=== PATIENT | female | born 1945 | race Hispanic/Latino ===

== ENCOUNTER → 2017-12-12 | Outpatient (CLI) | payer OTHER | END | disposition home or self-care (01) | LOC: SHCH 13:24 | PROVIDERS: ATTEND Internal Medicine Cardiovascular Disease | DX: I11.0 Hypertensive heart disease with heart failure (principal); I50.41 Acute combined systolic (congestive) and diastolic (congestive) heart failure; R06.00 Dyspnea, unspecified | CPT/HCPCS: 93306 ==

== ENCOUNTER 2017-12-31 14:53 | Emergency (ER) | payer OTHER ==
[2017-12-31] MEDS ORDERED: ONDANSETRON HCL 4 MG/2 ML VIAL ONE (15:28)
[2017-12-31 16:36] LABS: APPEARANCE,URINE Cloudy (CLEAR); BILIRUBIN,URINE Negative (NEGATIVE); COLOR,URINE Yellow (YELLOW); GLUCOSE, URINE (UA) Negative (NEGATIVE); KETONES,URINE Negative (NEGATIVE); LEUKOCYTE ESTERASE ,URINE Moderate (NEGATIVE); NITRATE,URINE Positive (NEGATIVE); OCCULT BLOOD,URINE Large (NEGATIVE); PROTEIN,URINE >=1000 (NEGATIVE)
[2017-12-31 16:42] LABS: AMYLASE 36 U/L (25-115); CREATINE KINASE, TOTAL 90 U/L (21-232); LIPASE 217 U/L (114-286)
[2017-12-31 16:48] LABS: BACTERIA,URINE Moderate /HPF (None Seen); RBC,URINE TNTC /HPF (0-1); SQUAMOUS EPITHELIAL CELL,UR 0-2 /HPF (0-2); YEAST,URINE BUDDING Few /HPF (None Seen)
[2017-12-31] MEDS ORDERED: LEVOFLOXACIN 750 MG/D5W 150 ML 0 ML ONE (17:01)
[2017-12-31] MEDS ORDERED: LEVOFLOXACIN 500 MG/D5W 100 ML 100 ML ONE (17:02)
[2017-12-31] MEDS ORDERED: ACETAMINOPHEN 325 MG TAB ONE (17:17)
== END 2017-12-31 18:16 | disposition home or self-care (01) ==
LOC: EDH 14:53
DX: N39.0 Urinary tract infection, site not specified (principal); A09 Infectious gastroenteritis and colitis, unspecified; E11.9 Type 2 diabetes mellitus without complications; M54.2 Cervicalgia; I11.0 Hypertensive heart disease with heart failure; I50.9 Heart failure, unspecified; J44.9 Chronic obstructive pulmonary disease, unspecified
CPT/HCPCS: 36415; 81001; 82150; 82550; 83605 ×2; 83690; 84484; 87040 ×2; 87077; 87088; 87186; 87804 ×2; 93005; 96365; 96375; 99285; J1956; J2405

== ENCOUNTER → 2020-06-17 | Outpatient (CLI) | payer OTHER | END | disposition home or self-care (01) | LOC: SHCH 12:58 | PROVIDERS: ATTEND Internal Medicine Cardiovascular Disease | DX: I67.9 Cerebrovascular disease, unspecified (principal); I35.0 Nonrheumatic aortic (valve) stenosis | CPT/HCPCS: 93306; 93356 ==

== ENCOUNTER → 2020-07-02 | Outpatient (CLI) | payer OTHER | END | disposition home or self-care (01) | LOC: SHCH 15:21 | PROVIDERS: ATTEND Internal Medicine Cardiovascular Disease | DX: I67.9 Cerebrovascular disease, unspecified (principal); I35.0 Nonrheumatic aortic (valve) stenosis | CPT/HCPCS: 93880 ==

== ENCOUNTER 2020-09-04 20:17 | Inpatient (IN) | payer OTHER ==
[~2020-09-04] VITALS: Ht 160 cm; Wt 77.3 kg
[2020-09-04 14:20] VITALS: BP 134/67
[2020-09-04 14:40] VITALS: BP 146/77
[2020-09-04 20:18] VITALS: BP 130/67
[2020-09-04 20:48] LABS: BASOPHILS % (AUTO) 0.7 % (0.0-5.0); EOSINOPHILS % (AUTO) 3.8 % (0.0-8.0); HEMATOCRIT 27.9 % (36-48); LYMPHOCYTES % (AUTO) 26.6 % (21.0-51.0); MEAN CORPUSCULAR HEMOGLOBIN 28.2 pg (27.0-33.0); MEAN CORPUSCULAR HGB CONC 31.5 g/dL (32.0-36.0); MEAN CORPUSCULAR VOLUME 89.4 fL (79-99); NEUTROPHILS % (AUTO) 57.6 % (40.0-77.0); PLATELET COUNT (AUTO) 197 K/uL (130-400); RED BLOOD CELL COUNT(AUTO) 3.12 MIL/uL (4.00-5.50); RED CELL DISTRIBUTION WIDTH 16.4 % (11.0-15.5); WHITE BLOOD COUNT (AUTO) 5.7 K/uL (4.8-10.8)
[2020-09-04 20:57] VITALS: BP 128/84
[2020-09-04 20:59] LABS: CREATININE 1.1 mg/dL (0.5-1.5); INR 0.97 (0.85-1.15); POTASSIUM 4.4 mmol/L (3.5-5.1); PROTHROMBIN TIME 10.6 SEC (9.6-11.6)
[2020-09-04 21:00] LABS: PARTIAL THROMBOPLASTIN TIME 25.3 SEC (26.3-35.5)
[2020-09-04 21:02] LABS: ALBUMIN 2.6 g/dL (3.5-5.0); BILIRUBIN,TOTAL 0.3 mg/dL (0.2-1.0); TOTAL PROTEIN, SERUM 7.2 g/dL (6.0-8.3)
[2020-09-04 22:02] VITALS: BP 126/82
[2020-09-04 22:03] LABS: APPEARANCE,URINE Clear (CLEAR); BILIRUBIN,URINE Negative (NEGATIVE); COLOR,URINE Yellow (YELLOW); GLUCOSE, URINE (UA) Negative (NEGATIVE); KETONES,URINE Negative (NEGATIVE); LEUKOCYTE ESTERASE ,URINE Negative (NEGATIVE); NITRATE,URINE Negative (NEGATIVE); OCCULT BLOOD,URINE Large (NEGATIVE); PH,URINE 6.5 (5.0-8.0); PROTEIN,URINE POS 2+ mg/dL (NEGATIVE); UROBILINOGEN,URINE 0.2 mg/dL (0.2-1.0)
[2020-09-04 22:21] LABS: BACTERIA,URINE Rare /HPF (None Seen); WBC,URINE 0-1 /HPF (0-1)
[2020-09-05] VITALS (7 sets, daily range): BP systolic 135–163; BP diastolic 52–83
[2020-09-05] MEDS ORDERED: HYDRALAZINE 20MG/ML VIAL IV PRN
[2020-09-05] MEDS: CEFTRIAXONE 1G VIAL IV SCH
[2020-09-05] MEDS ORDERED: ONDANSETRON 4MG INJ IV PRN
[2020-09-05] MEDS ORDERED: OCTREOTIDE ACETATE 1,250 MCG in 0.9% NACL 250ML 250 ML IV SCH ×2
[2020-09-05] MEDS ORDERED: OCTREOTIDE ACETATE 200 MCG/ML 5 ML VIAL ONE (00:16)
[2020-09-05] MEDS ORDERED: OCTREOTIDE ACETATE IV SCH (04:30)
[2020-09-05] MEDS ORDERED: NACL 0.9% IV SCH (04:30)
[2020-09-05 05:04] LABS: BASOPHILS % (AUTO) 0.8 % (0.0-5.0); EOSINOPHILS % (AUTO) 3.7 % (0.0-8.0); HEMATOCRIT 29.9 % (36-48); LYMPHOCYTES % (AUTO) 25.9 % (21.0-51.0); MEAN CORPUSCULAR HEMOGLOBIN 26.9 pg (27.0-33.0); MEAN CORPUSCULAR HGB CONC 30.8 g/dL (32.0-36.0); MEAN CORPUSCULAR VOLUME 87.4 fL (79-99); MONOCYTES % (AUTO) 10.1 % (3.0-13.0); NEUTROPHILS % (AUTO) 59.2 % (40.0-77.0); PLATELET COUNT (AUTO) 210 K/uL (130-400); RED BLOOD CELL COUNT(AUTO) 3.42 MIL/uL (4.00-5.50); RED CELL DISTRIBUTION WIDTH 16.4 % (11.0-15.5); WHITE BLOOD COUNT (AUTO) 6.4 K/uL (4.8-10.8)
[2020-09-05 05:25] LABS: MAGNESIUM 1.8 mg/dL (1.80-2.40); PHOSPHORUS 4.2 mg/dL (2.5-4.9); POTASSIUM 4.3 mmol/L (3.5-5.1)
[2020-09-05] MEDS ORDERED: ATOR10TA69 PO (10:43)
[2020-09-05] MEDS ORDERED: AMLO-257 PO (10:43)
[2020-09-05] MEDS ORDERED: PANT40TA54 PO (10:43)
[2020-09-05] MEDS ORDERED: ERGO500093 PO (10:43)
[2020-09-05] MEDS ORDERED: FOLI1 PO (10:43)
[2020-09-05] MEDS ORDERED: INSU300I SQ (10:43)
[2020-09-05] MEDS ORDERED: FERR325T29 PO (10:43)
[2020-09-05] MEDS ORDERED: ALBU2.5V2 NEB (10:43)
[2020-09-05] MEDS ORDERED: CARV25TA PO (10:43)
[2020-09-05] MEDS ORDERED: BENZ-70 PO (10:43)
[2020-09-05] MEDS ORDERED: METF-444 PO (10:43)
[2020-09-05] MEDS ORDERED: LOSA1TAB54 PO (10:43)
[2020-09-05] MEDS ORDERED: AEC81 PO (10:45)
[2020-09-05] MEDS ORDERED: MAGNESIUM CITRATE 296 ML SOLUTION PO SCH (12:30)
[2020-09-05] MEDS ORDERED: BISACODYL 5 MG TABLET.DR PO SCH (12:30)
[2020-09-05] MEDS ORDERED: LACTULOSE 20 GM/30 ML UDCUP PO PRN (12:30)
[2020-09-05] MEDS: PANTOPRAZOLE 40MG INJ 80 MG in 0.9%NACL 100ML 100 ML IV SCH ×2 (13:03→20:42)
[2020-09-05] MEDS ORDERED: PEG 3350/NA SULF,BICARB,CL/KCL 4000 ML SOLN PO SCH (16:00)
[2020-09-05] MEDS: 0.9%NACL 1000ML 1,000 ML IV SCH ×3 (16:40→19:54)
[2020-09-06] VITALS (17 sets, daily range): BP systolic 134–174; BP diastolic 63–94
[2020-09-06 05:32] LABS: HEMATOCRIT 29.8 % (36-48); MEAN CORPUSCULAR HEMOGLOBIN 27.1 pg (27.0-33.0); MEAN CORPUSCULAR HGB CONC 30.9 g/dL (32.0-36.0); MEAN CORPUSCULAR VOLUME 87.9 fL (79-99); RED BLOOD CELL COUNT(AUTO) 3.39 MIL/uL (4.00-5.50); RED CELL DISTRIBUTION WIDTH 16.4 % (11.0-15.5); WHITE BLOOD COUNT (AUTO) 6.6 K/uL (4.8-10.8)
[2020-09-06 05:50] LABS: CREATININE 0.9 mg/dL (0.5-1.5); POTASSIUM 3.5 mmol/L (3.5-5.1)
[2020-09-06] MEDS ORDERED: ALBUTEROL 0.083% 2.5 MG/3 ML INH IH PRN (08:30)
[2020-09-06] MEDS ORDERED: AMLO-257 PO (08:31)
[2020-09-06] MEDS ORDERED: ERGOCALCIFEROL (VITAMIN D2) 50,000 UNIT CAPSULE PO SCH (09:00)
[2020-09-06] MEDS: PANTOPRAZOLE 40 MG TAB DR PO SCH (09:00)
[2020-09-06] MEDS: FERROUS SULFATE 325 MG TABLET.DR PO SCH (09:00)
[2020-09-06] MEDS: CARVEDILOL 25 MG TABLET PO SCH ×2 (09:00→20:01)
[2020-09-06] MEDS: FOLIC ACID 1 MG TABLET PO SCH (09:00)
[2020-09-06] MEDS: 0.9%NACL 1000ML 1,000 ML IV SCH (09:57)
[2020-09-06] MEDS: PANTOPRAZOLE 40MG INJ 80 MG in 0.9%NACL 100ML 100 ML IV SCH (09:57)
[2020-09-06] MEDS ORDERED: FENTANYL CITRATE PF 50 MCG/1 ML 2ML VIAL ONE (12:48)
[2020-09-06] MEDS ORDERED: PROPOFOL 10 MG/ML 20ML VIAL IV ONE ×2 (12:49→13:43)
[2020-09-06] MEDS ORDERED: LIDOCAINE HCL 1% 20 ML VIAL ONE (12:49)
[2020-09-06] MEDS: LOSARTAN/HYDROCHLOROTHIAZIDE 50-12.5MG TABLET PO SCH (16:32)
[2020-09-06] MEDS ORDERED: ATORVASTATIN 10 MG TABLET PO SCH (21:00)
[2020-09-06] MEDS: CEFTRIAXONE 1G VIAL IV SCH ×2 (23:55)
[2020-09-07] VITALS (18 sets, daily range): BP systolic 133–159; BP diastolic 54–93
[2020-09-07] MEDS: 0.9%NACL 1000ML 1,000 ML IV SCH ×2 (01:01→05:10)
[2020-09-07 05:30] LABS: HEMATOCRIT 28.7 % (36-48); MEAN CORPUSCULAR HGB CONC 31.7 g/dL (32.0-36.0); MEAN CORPUSCULAR VOLUME 85.2 fL (79-99); RED BLOOD CELL COUNT(AUTO) 3.37 MIL/uL (4.00-5.50); RED CELL DISTRIBUTION WIDTH 16.2 % (11.0-15.5); WHITE BLOOD COUNT (AUTO) 9.3 K/uL (4.8-10.8)
[2020-09-07 05:50] LABS: POTASSIUM 3.7 mmol/L (3.5-5.1)
[2020-09-07] MEDS: CARVEDILOL 25 MG TABLET PO SCH (06:12)
[2020-09-07] MEDS: FERROUS SULFATE 325 MG TABLET.DR PO SCH (09:00)
[2020-09-07] MEDS: LOSARTAN/HYDROCHLOROTHIAZIDE 50-12.5MG TABLET PO SCH (09:00)
[2020-09-07] MEDS ORDERED: AMLODIPINE 5 MG TAB PO SCH (09:00)
[2020-09-07] MEDS: PANTOPRAZOLE 40 MG TAB DR PO SCH (09:00)
[2020-09-07] MEDS: FOLIC ACID 1 MG TABLET PO SCH (09:00)
[2020-09-07] MEDS ORDERED: HYDROCORTISONE 25 MG SUPPOSITORY PR SCH (09:00)
[2020-09-07] MEDS ORDERED: FENTANYL CITRATE PF 50 MCG/1 ML 2ML VIAL ONE (11:37)
[2020-09-07] MEDS ORDERED: PROPOFOL 10 MG/ML 20ML VIAL IV ONE ×2 (11:37→12:18)
[2020-09-07] MEDS ORDERED: SUCCINYLCHOLINE 200MG/10ML SYR ONE (12:20)
== END 2020-09-07 17:00 | disposition home or self-care (01) | DRG 368 ==
LOC: EDH 20:40 → EDHIP 23:36 → OBSVTOIN 23:36 → 3AH 09-05 02:47
PROVIDERS: ADMIT Internal Medicine; ATTEND Internal Medicine
PROC: 0DJ08ZZ Inspection of Upper Intestinal Tract, Via Natural or Artificial Opening Endoscopic (ICD-10-PCS; principal; 2020-09-06)
PROC: 0DBP8ZZ Excision of Rectum, Via Natural or Artificial Opening Endoscopic (ICD-10-PCS; 2020-09-06)
PROC: 0W3P8ZZ Control Bleeding in Gastrointestinal Tract, Via Natural or Artificial Opening Endoscopic (ICD-10-PCS; 2020-09-06)
PROC: 0DJD8ZZ Inspection of Lower Intestinal Tract, Via Natural or Artificial Opening Endoscopic (ICD-10-PCS; 2020-09-06)
PROC: 0DJ08ZZ Inspection of Upper Intestinal Tract, Via Natural or Artificial Opening Endoscopic (ICD-10-PCS; 2020-09-06)
DX: K21.01 Gastro-esophageal reflux disease with esophagitis, with bleeding (principal); K29.01 Acute gastritis with bleeding; E43 Unspecified severe protein-calorie malnutrition; K57.31 Diverticulosis of large intestine without perforation or abscess with bleeding; D62 Acute posthemorrhagic anemia; K63.3 Ulcer of intestine; K62.1 Rectal polyp; I12.9 Hypertensive chronic kidney disease with stage 1 through stage 4 chronic kidney disease, or unspecified chronic kidney disease; J45.909 Unspecified asthma, uncomplicated; E11.22 Type 2 diabetes mellitus with diabetic chronic kidney disease; E78.00 Pure hypercholesterolemia, unspecified; E78.5 Hyperlipidemia, unspecified; K44.9 Diaphragmatic hernia without obstruction or gangrene; N18.9 Chronic kidney disease, unspecified; K64.1 Second degree hemorrhoids; Z68.30 Body mass index [BMI] 30.0-30.9, adult; Z79.4 Long term (current) use of insulin; Z79.82 Long term (current) use of aspirin; Z79.899 Other long term (current) drug therapy; Z86.73 Personal history of transient ischemic attack (TIA), and cerebral infarction without residual deficits; Z90.49 Acquired absence of other specified parts of digestive tract; Z20.822 Contact with and (suspected) exposure to COVID-19
CPT/HCPCS: 36415; 43235; 44360; 45380; 45382; 76770; 80048; 80053; 81001; 82270; 82550; 82948; 83735; 84100; 84484; 85025; 85027; 85610; 85730; 86677; 86850; 86900; 86901; 86923; 87635; 94664; A4606; C9113; G0378; J0330; J0360; J0696; J2354; J2704; J3010; J7030

== ENCOUNTER 2020-11-18 12:48 | Inpatient (IN) | payer OTHER ==
[~2020-11-18] VITALS: Ht 144.8 cm; Wt 83.5 kg
[~2020-11-18 12:48] MED LIST: AEC81 PO; ALBU2.5V2 NEB; AMLO-257 PO; ATOR10TA69 PO; BENZ-70 PO; CARV25TA PO; ERGO500093 PO; FERR325T29 PO; FOLI1 PO; INSU300I SQ; LOSA1TAB54 PO; METF-444 PO; PANT40TA54 PO
[2020-11-18] MEDS ORDERED: NITROGLYCERIN 1GM OINT 1 INCH/1GM TD ONE (13:00)
[2020-11-18] MEDS ORDERED: FUROSEMIDE 40MG VIAL IV ONE (13:00)
[2020-11-18] MEDS ORDERED: IPRATROPIUM/ALBUTEROL SULFATE 3 ML SOLUTION IH ONE (13:00)
[2020-11-18] MEDS ORDERED: SOLU-MEDROL 125MG VIAL IVP ONE (13:00)
[2020-11-18 13:18] LABS: ABG BASE EXCESS -2.2 mmol/L (-2.0-3.0); ABG HCO3 27.7 mmol/L (21.0-28.0); ABG OXYGEN SATURATION 99.2 % (95.0-99.0); ABG PCO2 78 mmHg (32-45)
[2020-11-18 13:31] VITALS: BP 163/71
[2020-11-18 13:34] LABS: BASOPHILS % (AUTO) 0.6 % (0.0-5.0); EOSINOPHILS % (AUTO) 0.7 % (0.0-8.0); HEMATOCRIT 33.2 % (36-48); MEAN CORPUSCULAR HEMOGLOBIN 28.8 pg (27.0-33.0); MEAN CORPUSCULAR HGB CONC 29.2 g/dL (32.0-36.0); MEAN CORPUSCULAR VOLUME 98.5 fL (79-99); MONOCYTES % (AUTO) 5.6 % (3.0-13.0); NEUTROPHILS % (AUTO) 71.3 % (40.0-77.0); PLATELET COUNT (AUTO) 210 K/uL (130-400); RED BLOOD CELL COUNT(AUTO) 3.37 MIL/uL (4.00-5.50); RED CELL DISTRIBUTION WIDTH 17.4 % (11.0-15.5); WHITE BLOOD COUNT (AUTO) 8.9 K/uL (4.8-10.8)
[2020-11-18 13:52] LABS: B-TYPE NATRIURETIC PEPTIDE 1360 pg/mL (0-100)
[2020-11-18 14:44] LABS: ALBUMIN 2.9 g/dL (3.5-5.0); BILIRUBIN,TOTAL 0.4 mg/dL (0.2-1.0); CREATININE 1.2 mg/dL (0.5-1.5); POTASSIUM 5.5 mmol/L (3.5-5.1); TOTAL PROTEIN, SERUM 7.2 g/dL (6.0-8.3)
[2020-11-18] MEDS ORDERED: IOHEXOL-350 75 ML VIAL IV ONE (16:30)
[2020-11-18] MEDS ORDERED: ONDANSETRON 4MG INJ IVP PRN (16:30)
[2020-11-18] MEDS ORDERED: DOCUSATE SODIUM 100 MG CAP PO PRN (16:30)
[2020-11-18] MEDS ORDERED: MORPHINE 2 MG SYG IVP PRN (16:30)
[2020-11-18] MEDS ORDERED: ACETAMINOPHEN 325 MG TAB PO PRN (16:30)
[2020-11-18] MEDS ORDERED: LACTULOSE 20 GM/30 ML UDCUP PO PRN (16:30)
[2020-11-18] MEDS ORDERED: ACETAMINOPHEN 650 MG SUPPOSITORY RC PRN (16:30)
[2020-11-18] MEDS ORDERED: SOLU-MEDROL 125MG VIAL IVP SCH (16:30)
[2020-11-18] MEDS ORDERED: HYDRALAZINE 20MG/ML VIAL IV PRN (16:30)
[2020-11-18 17:18] VITALS: BP 144/75
[2020-11-18 17:46] LABS: APPEARANCE,URINE Clear (CLEAR); BILIRUBIN,URINE Negative (NEGATIVE); COLOR,URINE Yellow (YELLOW); GLUCOSE, URINE (UA) Negative (NEGATIVE); KETONES,URINE Negative (NEGATIVE); LEUKOCYTE ESTERASE ,URINE Negative (NEGATIVE); NITRATE,URINE Negative (NEGATIVE); OCCULT BLOOD,URINE Small (NEGATIVE); PROTEIN,URINE POS 2+ mg/dL (NEGATIVE); UROBILINOGEN,URINE 0.2 mg/dL (0.2-1.0)
[2020-11-18] MEDS: INSULIN HUMULIN R 100 UNIT/ML 3ML SQ SCH ×2 (17:48→22:54)
[2020-11-18 18:15] LABS: BACTERIA,URINE Few /HPF (None Seen); MUCUS,URINE Few LPF (None Seen); SQUAMOUS EPITHELIAL CELL,UR 0-2 /HPF (0-2)
[2020-11-18 18:52] VITALS: BP 125/66
[2020-11-18] MEDS: LEVOFLOXACIN 500 MG/D5W 100 ML IV SCH (19:33)
[2020-11-18 20:00] VITALS: BP 145/87
[2020-11-18] MEDS ORDERED: BENZONATATE 100 MG CAPSULE PO PRN (22:30)
[2020-11-18] MEDS: IPRATROPIUM/ALBUTEROL SULFATE 3 ML SOLUTION IH SCH (22:45)
[2020-11-18] MEDS: SOLU-MEDROL 125MG VIAL IVP SCH (22:54)
[2020-11-18] MEDS: FUROSEMIDE 40MG VIAL IV SCH (23:23)
[2020-11-19] VITALS (10 sets, daily range): BP systolic 104–150; BP diastolic 45–92
[2020-11-19] MEDS: IPRATROPIUM/ALBUTEROL SULFATE 3 ML SOLUTION IH SCH ×4 (01:37→18:18)
[2020-11-19 04:24] LABS: ABG BASE EXCESS 0.7 mmol/L (-2.0-3.0); ABG OXYGEN SATURATION 96.4 % (95.0-99.0); ABG PCO2 58 mmHg (32-45)
[2020-11-19 05:05] LABS: BASOPHILS % (AUTO) 0.2 % (0.0-5.0); HEMATOCRIT 32.2 % (36-48); LYMPHOCYTES % (AUTO) 14.5 % (21.0-51.0); MEAN CORPUSCULAR HEMOGLOBIN 28.5 pg (27.0-33.0); MEAN CORPUSCULAR HGB CONC 29.8 g/dL (32.0-36.0); MEAN CORPUSCULAR VOLUME 95.5 fL (79-99); MONOCYTES % (AUTO) 0.9 % (3.0-13.0); NEUTROPHILS % (AUTO) 83.2 % (40.0-77.0); PLATELET COUNT (AUTO) 192 K/uL (130-400); RED BLOOD CELL COUNT(AUTO) 3.37 MIL/uL (4.00-5.50); RED CELL DISTRIBUTION WIDTH 17.2 % (11.0-15.5); WHITE BLOOD COUNT (AUTO) 4.3 K/uL (4.8-10.8)
[2020-11-19] MEDS: SOLU-MEDROL 125MG VIAL IVP SCH ×3 (05:20→21:30)
[2020-11-19 05:42] LABS: B-TYPE NATRIURETIC PEPTIDE 1260 pg/mL (0-100); CREATININE 1.2 mg/dL (0.5-1.5); MAGNESIUM 1.6 mg/dL (1.80-2.40); POTASSIUM 4.5 mmol/L (3.5-5.1)
[2020-11-19] MEDS: INSULIN HUMULIN R 100 UNIT/ML 3ML SQ SCH ×4 (07:30→21:25)
[2020-11-19] MEDS ORDERED: IOHEXOL-350 75 ML VIAL IV ONE (08:46)
[2020-11-19] MEDS ORDERED: ASPIRIN 81 MG EC TAB PO SCH (09:00)
[2020-11-19] MEDS ORDERED: ASPIRIN 81MG CHEW TAB PO SCH (09:00)
[2020-11-19] MEDS ORDERED: ERGOCALCIFEROL (VITAMIN D2) 50,000 UNIT CAPSULE PO SCH (10:04)
[2020-11-19] MEDS: AMLODIPINE 5 MG TAB PO SCH (11:35)
[2020-11-19] MEDS: FOLIC ACID 1 MG TABLET PO SCH (11:35)
[2020-11-19] MEDS: FUROSEMIDE 40MG VIAL IV SCH ×2 (11:35→21:31)
[2020-11-19] MEDS: PANTOPRAZOLE 40 MG TAB DR PO SCH (11:35)
[2020-11-19] MEDS: CARVEDILOL 25 MG TABLET PO SCH ×2 (11:36→21:31)
[2020-11-19] MEDS: ENOXAPARIN SODIUM 40 MG/0.4 ML SYRINGE SQ SCH (11:36)
[2020-11-19] MEDS: METOPROLOL TARTRATE 25 MG TAB PO SCH ×2 (11:38→21:31)
[2020-11-19] MEDS: FERROUS SULFATE 325 MG TABLET.DR PO SCH (11:39)
[2020-11-19] MEDS: LEVOFLOXACIN 500 MG/D5W 100 ML IV SCH (19:45)
[2020-11-19] MEDS: ATORVASTATIN 10 MG TABLET PO SCH (21:31)
[2020-11-20] VITALS (7 sets, daily range): BP systolic 113–137; BP diastolic 58–75
[2020-11-20] MEDS: IPRATROPIUM/ALBUTEROL SULFATE 3 ML SOLUTION IH SCH ×4 (00:28→18:29)
[2020-11-20 04:03] LABS: HEMATOCRIT 29.9 % (36-48); LYMPHOCYTES % (AUTO) 7.4 % (21.0-51.0); MEAN CORPUSCULAR HGB CONC 30.1 g/dL (32.0-36.0); MEAN CORPUSCULAR VOLUME 93.1 fL (79-99); PLATELET COUNT (AUTO) 204 K/uL (130-400); RED BLOOD CELL COUNT(AUTO) 3.21 MIL/uL (4.00-5.50); WHITE BLOOD COUNT (AUTO) 8.3 K/uL (4.8-10.8)
[2020-11-20 04:13] LABS: CREATININE 1.6 mg/dL (0.5-1.5); POTASSIUM 4.2 mmol/L (3.5-5.1)
[2020-11-20 04:19] LABS: B-TYPE NATRIURETIC PEPTIDE 694 pg/mL (0-100)
[2020-11-20] MEDS: SOLU-MEDROL 125MG VIAL IVP SCH ×2 (05:06→15:06)
[2020-11-20] MEDS: INSULIN HUMULIN R 100 UNIT/ML 3ML SQ SCH ×4 (06:31→20:17)
[2020-11-20 06:41] LABS: ABG BASE EXCESS 11.7 mmol/L (-2.0-3.0); ABG HCO3 38.9 mmol/L (21.0-28.0); ABG OXYGEN SATURATION 97.6 % (95.0-99.0); ABG PCO2 61 mmHg (32-45)
[2020-11-20] MEDS: FUROSEMIDE 40MG VIAL IV SCH ×2 (09:51→21:56)
[2020-11-20] MEDS: ENOXAPARIN SODIUM 40 MG/0.4 ML SYRINGE SQ SCH (09:52)
[2020-11-20] MEDS: ASPIRIN 81 MG EC TAB PO SCH (09:52)
[2020-11-20] MEDS: PANTOPRAZOLE 40 MG TAB DR PO SCH (09:53)
[2020-11-20] MEDS: METOPROLOL TARTRATE 25 MG TAB PO SCH ×2 (09:53→20:15)
[2020-11-20] MEDS: CARVEDILOL 25 MG TABLET PO SCH ×2 (09:54→20:16)
[2020-11-20] MEDS: AMLODIPINE 5 MG TAB PO SCH (09:54)
[2020-11-20] MEDS: FERROUS SULFATE 325 MG TABLET.DR PO SCH (09:54)
[2020-11-20] MEDS: FOLIC ACID 1 MG TABLET PO SCH (09:54)
[2020-11-20] MEDS ORDERED: MAGNESIUM 2GM PREMIX 50ML 50 ML IV PRN (10:00)
[2020-11-20] MEDS: LEVOFLOXACIN 500 MG/D5W 100 ML IV SCH (18:37)
[2020-11-20] MEDS: ATORVASTATIN 10 MG TABLET PO SCH (20:15)
[2020-11-20] MEDS: SOLU-MEDROL 40MG VIAL IVP SCH (20:15)
[2020-11-20] MEDS: INSULIN GLARGINE 100 UNITS/ML 10 ML VIAL SQ SCH (20:18)
[2020-11-21] MEDS: IPRATROPIUM/ALBUTEROL SULFATE 3 ML SOLUTION IH SCH ×5 (00:22→23:21)
[2020-11-21 03:29] VITALS: BP 121/61
[2020-11-21] MEDS: INSULIN HUMULIN R 100 UNIT/ML 3ML SQ SCH ×4 (06:06→20:55)
[2020-11-21 07:57] VITALS: BP 136/77
[2020-11-21] MEDS: SOLU-MEDROL 40MG VIAL IVP SCH ×2 (08:09→20:53)
[2020-11-21] MEDS: FERROUS SULFATE 325 MG TABLET.DR PO SCH (08:10)
[2020-11-21] MEDS: ASPIRIN 81 MG EC TAB PO SCH (08:10)
[2020-11-21] MEDS: FOLIC ACID 1 MG TABLET PO SCH (08:10)
[2020-11-21] MEDS: ENOXAPARIN SODIUM 40 MG/0.4 ML SYRINGE SQ SCH (08:10)
[2020-11-21] MEDS: AMLODIPINE 5 MG TAB PO SCH (08:10)
[2020-11-21] MEDS: PANTOPRAZOLE 40 MG TAB DR PO SCH (08:10)
[2020-11-21] MEDS: METOPROLOL TARTRATE 25 MG TAB PO SCH ×2 (08:11→20:53)
[2020-11-21] MEDS: CARVEDILOL 25 MG TABLET PO SCH ×2 (08:11→20:53)
[2020-11-21 11:25] VITALS: BP 159/66
[2020-11-21] MEDS: FUROSEMIDE 40MG VIAL IV SCH ×2 (12:14→20:57)
[2020-11-21 16:15] VITALS: BP 116/64
[2020-11-21] MEDS: LEVOFLOXACIN 500 MG/D5W 100 ML IV SCH (17:13)
[2020-11-21 20:08] VITALS: BP 113/64
[2020-11-21] MEDS: ATORVASTATIN 10 MG TABLET PO SCH (20:53)
[2020-11-21] MEDS: INSULIN GLARGINE 100 UNITS/ML 10 ML VIAL SQ SCH (20:54)
[2020-11-22 00:08] VITALS: BP 127/70
[2020-11-22 04:12] VITALS: BP 122/69
[2020-11-22] MEDS: INSULIN HUMULIN R 100 UNIT/ML 3ML SQ SCH (05:57)
[2020-11-22] MEDS: IPRATROPIUM/ALBUTEROL SULFATE 3 ML SOLUTION IH SCH ×2 (06:56→11:15)
[2020-11-22 08:02] VITALS: BP 133/58
[2020-11-22] MEDS: PANTOPRAZOLE 40 MG TAB DR PO SCH (08:55)
[2020-11-22] MEDS: FERROUS SULFATE 325 MG TABLET.DR PO SCH (08:55)
[2020-11-22] MEDS: FOLIC ACID 1 MG TABLET PO SCH (08:55)
[2020-11-22] MEDS: AMLODIPINE 5 MG TAB PO SCH (08:55)
[2020-11-22] MEDS: ASPIRIN 81 MG EC TAB PO SCH (08:55)
[2020-11-22] MEDS: METOPROLOL TARTRATE 25 MG TAB PO SCH (08:55)
[2020-11-22] MEDS: CARVEDILOL 25 MG TABLET PO SCH (08:55)
[2020-11-22] MEDS: ENOXAPARIN SODIUM 40 MG/0.4 ML SYRINGE SQ SCH (08:56)
[2020-11-22] MEDS: SOLU-MEDROL 40MG VIAL IVP SCH (08:56)
[2020-11-22] MEDS: FUROSEMIDE 40MG VIAL IV SCH (10:19)
[2020-11-22] MEDS ORDERED: LEVO500T89 PO (10:30)
[2020-11-22] MEDS ORDERED: FURO20TA4 PO (10:30)
[2020-11-22] MEDS ORDERED: PRED20TA3 PO (10:30)
[2020-11-22 11:52] VITALS: BP 117/73
== END 2020-11-22 11:59 | disposition home or self-care (01) | DRG 291 ==
LOC: EDH 12:48 → EDHIP 16:05 → 4DH 11-19 01:18
PROVIDERS: ADMIT Internal Medicine Critical Care Medicine; ATTEND Internal Medicine Critical Care Medicine
PROC: 5A09357 Assistance with Respiratory Ventilation, Less than 24 Consecutive Hours, Continuous Positive Airway Pressure (ICD-10-PCS; principal; 2020-11-18)
PROC: 5A09357 Assistance with Respiratory Ventilation, Less than 24 Consecutive Hours, Continuous Positive Airway Pressure (ICD-10-PCS; 2020-11-19)
PROC: 5A09357 Assistance with Respiratory Ventilation, Less than 24 Consecutive Hours, Continuous Positive Airway Pressure (ICD-10-PCS; 2020-11-20)
DX: I11.0 Hypertensive heart disease with heart failure (principal); J96.01 Acute respiratory failure with hypoxia; J96.02 Acute respiratory failure with hypercapnia; I69.354 Hemiplegia and hemiparesis following cerebral infarction affecting left non-dominant side; J44.1 Chronic obstructive pulmonary disease with (acute) exacerbation; E44.0 Moderate protein-calorie malnutrition; I50.33 Acute on chronic diastolic (congestive) heart failure; E78.5 Hyperlipidemia, unspecified; E11.9 Type 2 diabetes mellitus without complications; Z20.822 Contact with and (suspected) exposure to COVID-19; E78.00 Pure hypercholesterolemia, unspecified; D64.9 Anemia, unspecified; G47.33 Obstructive sleep apnea (adult) (pediatric); E66.9 Obesity, unspecified; Z79.4 Long term (current) use of insulin; Z79.82 Long term (current) use of aspirin; Z79.899 Other long term (current) drug therapy
CPT/HCPCS: 36415; 36600; 71045; 71270; 71275; 80048; 80053; 81001; 82435; 82550; 82803; 82947; 82948; 83605; 83735; 83874; 83880; 84100; 84132; 84145; 84295; 84484; 85018; 85025; 85378; 87088; 87635; 87804; 92526; 92610; 93005; 93356; 94640; 94660; 94664; 94760; 96374; 97039; C8929; C9803; G0378; J1650; J1815; J1940; J1956; J2920; J2930; J3475; Q9967